=== PATIENT | male | born 1990 | race Caucasian/White ===

== ENCOUNTER 2019-06-02 13:49 | Emergency (ER) | payer MEDICAID ==
[~2019-06-02] VITALS: Ht 165.1 cm; Wt 84.6 kg
[~2019-06-02 13:49] MED LIST: ACET500C5 PO; BACL10TA PO
[2019-06-02 14:10] VITALS: BP 158/87; PULSE 83; RESP 16; Ht 165.1 cm; Wt 84.6 kg
[2019-06-02] MEDS ORDERED: ACETAMINOPHEN 500 MG TAB PO STA (16:09)
== END 2019-06-02 17:00 | disposition home or self-care (01) ==
LOC: FTE 13:49
DX: M54.9 Dorsalgia, unspecified (principal); M79.672 Pain in left foot
CPT/HCPCS: 73630; Z7502; Z7610